=== PATIENT | female | born 1950 | race Caucasian/White ===

== ENCOUNTER → 2017-05-03 10:01 | Outpatient (CLI) | payer BC, SELFPAY ==
--- NOTE | 2017-05-03 10:03 | ECHOD_ITS ---
Reason For Study: RBBB Procedure This was a 2D Doppler, Color Flow transthoracic echocardiogram. Exam performed in department. Left Ventricle Normal LV size. Left ventricular systolic function is normal. The estimated ejection fraction is 60 %. No regional wall motion abnormalities noted. Right Ventricle Normal RV size. Normal systolic function. Atria Normal left atrium. Normal right atrium. Mitral Valve Normal mitral valve. Tricuspid Valve Normal tricuspid valve. Mild tricuspid valve insufficiency. Aortic Valve Trisinus/trileaflet aortic valve. Mild focal aortic valve calcification. Pulmonic Valve Normal pulmonic valve. Great Vessels Normal aortic root. The pulmonary artery is normal size. Normal inferior vena cava. Pericardium/Pleural No pericardial effusion. MMode/2D Measurements & Calculations LVIDd: 3.7 cm IVSd: 0.97 cm Ao root diam: 3.0 cm LVIDs: 2.6 cm LVPWd: 0.88 cm LA dimension: 3.9 cm RVDd: 3.2 cm FS: 30.2 % LAV(MOD-bp): 38.5 ml LA A4 area: 16.0 cm2 RA A4 area: 12.1 cm2 LAV(MOD-bp) Indexed: 20.6 ml/m2 LAV(MOD-sp2): 43.4 ml LAV(MOD-sp4): 34.2 ml Doppler Measurements & Calculations MV E max bhanu: 79.4 cm/sec Lat Peak E' Bhanu: 8.9 cm/sec Med Peak E' Bhanu: 4.9 cm/sec MV A max bhanu: 104.7 cm/sec E/E' lat: 8.9 E/E' med: 16.2 MV E/A: 0.76 Ao V2 max: 167.5 cm/sec LV V1 max: 127.8 cm/sec PA V2 max: 89.4 cm/sec Ao max P.2 mmHg LV V1 max P.5 mmHg Ao V2 mean: 130.3 cm/sec Ao mean P.2 mmHg Ao V2 VTI: 43.3 cm TR max bhanu: 224.6 cm/sec TR max P.2 mmHg Interpretation Summary Normal LV size. Left ventricular systolic function is normal. The estimated ejection fraction is 60 %. Mild tricuspid valve insufficiency. Ordering Physician: DELANO Zhou Referring Physician: Lizz Torres Performed By: Naty Mancini, JUAN, RVT
== END ==
PROVIDERS: Family Provider Nurse Practitioner; PCP Nurse Practitioner; Visit Provider Nurse Practitioner Gerontology
DX: I45.10 Unspecified right bundle-branch block (principal)
CPT/HCPCS: 93306

== ENCOUNTER → 2017-05-17 11:49 | Outpatient (CLI) | payer BC, SELFPAY ==
--- NOTE | 2017-05-17 11:51 | RAD_ITS ---
STUDY: X-RAY CHEST REASON FOR EXAM: Female, 66 years old. Cough TECHNIQUE: PA and lateral views of the chest. COMPARISON: 04/15/2017 FINDINGS: Stable hyperinflation of the upper lung parenchyma, few linear markings in the left base without significant change. There is no focal parenchymal abnormality. There is no demonstrated pneumothorax. There is no demonstrated pleural abnormality. Normal size heart. There are calcified mediastinal lymph nodes. Normal visualized pulmonary arteries. There is atherosclerotic calcification of the aortic arch with tortuosity. There are diffuse degenerative changes of the visualized thoracic spine. Normal visualized ribs, clavicles, and shoulders. There is no demonstrated abnormality of the visualized soft tissue structures of the upper abdomen. RAD/Chest PA and Lateral IMPRESSION: Hyperinflation likely postobstructive in nature with minor scarring/atelectasis, remote granulomatous exposure. No pulmonary edema, congestive heart failure or confluent pneumonia. There is no significant interval change. Electronically Signed: Lily Hudson MD at 11:31 EST , Service support ,
== END ==
PROVIDERS: Family Provider Nurse Practitioner; PCP Nurse Practitioner; Visit Provider Nurse Practitioner
DX: R05 Cough (principal)
CPT/HCPCS: 71046

== ENCOUNTER → 2017-06-13 15:25 | Outpatient (CLI) | payer BC, SELFPAY ==
--- NOTE | 2017-06-13 15:32 | VDLE_ITS ---
Reason For Study: edema RIGHT LEFT GSV is normal. CFV is compressible, spontaneous, phasic, CFV is compressible, spontaneous, phasic, competent, and demonstrates normal competent and demonstrates normal augmentation. augmentation. FV is compressible, spontaneous, phasic, competent and demonstrates normal augmentation. POP V is compressible, spontaneous, phasic, competent and demonstrates normal augmentation. T/P Trunk is compressible. PTV is compressible. RT PerV is compressible. Hypoechoic area behind the knee measuring 4.15 x 1.46 cm. Area is nonvascular. Procedure Exam performed in department. The exam was diagnostic. A preliminary report was called and/or faxed to the [facility]. Interpretation Summary Deep veins of the right lower extremity are patent and compressible segmentally. There is no evidence of right lower extremity deep vein thrombosis. Valvular competence appears intact within the proximal deep venous system on the right . The right greater saphenous vein appears patent and compressible segmentally. A non-vascular, hypoechoic structure is noted in the right popliteal space, measuring 4.15 cm x 1.46 cm. This probably represents a popliteal cyst. Clinical correlation is advised. Ordering Physician: Ganesh Obando Performed By: Amrit Cortés RVT
== END ==
PROVIDERS: Family Provider Nurse Practitioner; PCP Nurse Practitioner; Visit Provider Orthopaedic Surgery
DX: R60.0 Localized edema (principal); Z96.651 Presence of right artificial knee joint
CPT/HCPCS: 93971

== ENCOUNTER 2017-09-13 08:30 | Outpatient (RCR) | payer MEDICARE, SELFPAY ==
--- NOTE | 2017-08-06 08:52 | HP.PTEVAL ---
Patient's Visit Information LUIS MANUEL GUERRA is a 67 year old F referred to Physical Therapy by Ganesh Clement with a diagnosis of Right TKR. Date of Evaluation: 08/06/17 Physical Therapist: Pavithra Azar - Visit Plan Frequency: 2-3x /Week Duration: 3 Weeks Plan: Focus on LE ROM and functional mobility - Subjective Subjective: Right TKR 05/30/17- Dr. Mcgee. Went home after surgery- no problems- hardly used a walker- had home health. Home Health Finished up July 29 and sent her here. Patient feels the knee is stiff as a board- all the time. Measurments: most was 112 but last day was 105. Feels like the knee is regressing a little bit. This is her first total. Pain is usually not bad but walked on gravel yesterday so its sore today. No real pain just mostly stiffness. Sometimes does have radiating pain to the ankle- has had doplars which were negative. Soreness is on the medial and lateral joint line. Worst: 3/10 Best: 0/10. Sleep: not disturbed-doesn't have a favorite position. Fully I before surgery. Work: [employer]- does a lot of standing- worked a little bit Saturday but not back to [employer] yet-officially retired so she is not sure she will go back. PMHx: HTN Meds: exforge, Vimimo. Member of [employer]- - Objective Posture: FH, RS, Increased kyphosis. Gait: slightly antalgic- decreased heel/toe pattern. Stairs: asc/desc 8 recip with 1 HR- poor pattern. HR/TR: able- increased pain with TR. SLS: 5 sec then requires UE A. Palpation: tender along medial and lateral joint line. Observation: incision healed well- no s/s of infection. ROM: 10-95 degrees with pain at end range. Strength: Ankle: 5/5 Knee: 4+/5 Hip: 4/5 throughout Core: fair plus - Goals Goal 1:: Patient will be I with HEP and progression Goal Time Frame: 4-6 Weeks Goal 2:: Patient will demo 0-115 degrees of ROM in the right knee Goal Time Frame: 4-6 Weeks Goal 3:: Patient will ambulate >300 feet with a normalized gait pattern Goal Time Frame: 4-6 Weeks Goal 4:: Patient will asc/desc 8'' stairs recip with 1 HR and good control Goal Time Frame: 4-6 Weeks - Rehabilitation Potential Physical Therapy Diagnosis: Patient presents with hypomobility- she has decreased ROM, strength and muscular endurance leading to abnormal gait and increased difficulty with ADL's. Rehabilitation Potential: Fair - Anticipated Interventions Patient/Client Instruction: Educate patient on: Benefits of Fitness Program For the Purpose of:: To increase tolerance to activity/condition/position Therapeutic Exercise to Include: Strength training, Endurance training, Balance training, Body mechanics, Postural training, Flexibilty training, Gait and locomotor training, Passive ROM, Active ROM, Dynamic Lumbar Stabilization For the Purpose of:: To improve muscle performance and motor function TENS: Yes Cryotherapy (ice pack, ice massage): Yes Thermo therapy (hot pack): Yes Ultrasound (thermal/non thermal): No For the Purpose of:: To decrease pain Thank you for the opportunity to evaluate your patient. For Medicare and Medicare HMO plans, please review the plan of care and approve it. It will need to be FAXED BACK to us at [phone] for Medicare purposes. Please let me know if there are questions or concerns regarding this plan of care. Physician Signature: Date:
--- NOTE | 2017-08-29 09:28 | HP.PTREVAL_ITS ---
Ganesh Clement, It has been my pleasure to treat LUIS MANUEL GUERRA over the last 10 visits for Right TKR. Please see the progress note below for an update on the physical therapy plan of care! Subjective: Patient reports that she is happy with her progress. She feels that she is 80-90% better. She is back to all of her normal activities but she is still stiff. Goes back to [place] next week- she is still thinking about going back to work. Objective/Function: Posture: FH, RS, Increased kyphosis. Gait:improving-mildly antalgic Stairs: asc/desc 8 recip with 1 HR. HR/TR: able. SLS: 20 sec then requires UE A. Palpation: tender along medial and lateral joint line. Observation: incision healed well- no s/s of infection. ROM: 0-110 degrees with stiffness at end range. Strength: Ankle: 5/5 Knee: 4+/5 Hip: 4+/5 throughout Core: fair plus Plan Plan: Continue 2-3x a week for 2 weeks. Goals Goal 1:: Patient will be I with HEP and progression Goal Time Frame: 4-6 Weeks Goal Progress: Progressing Goal 2:: Patient will demo 0-115 degrees of ROM in the right knee Goal Time Frame: 4-6 Weeks Goal Progress: Progressing Goal 3:: Patient will ambulate >300 feet with a normalized gait pattern Goal Time Frame: 4-6 Weeks Goal Progress: Progressing Goal 4:: Patient will asc/desc 8'' stairs recip with 1 HR and good control Goal Time Frame: 4-6 Weeks Goal Progress: Progressing Anticipated Interventions Patient/Client Instruction: Educate patient on: Benefits of Fitness Program For the Purpose of:: To increase tolerance to activity/condition/position Therapeutic Exercise to Include: Strength training, Endurance training, Balance training, Body mechanics, Postural training, Flexibilty training, Gait and locomotor training, Passive ROM, Active ROM, Dynamic Lumbar Stabilization For the Purpose of:: To improve muscle performance and motor function TENS: Yes Cryotherapy (ice pack, ice massage): Yes Thermo therapy (hot pack): Yes Ultrasound (thermal/non thermal): No For the Purpose of:: To decrease pain Please do not hesitate to contact me at [phone] by phone or Fax: if you have questions or concerns regarding this new plan of care! Sincerely, Pavithra Azar
--- NOTE | 2017-12-24 10:50 | HP.PT.NRP ---
HP - Discharge Summary (1) - Patient Information LUIS MANUEL GUERRA was seen in my office for initial evaluation on 08/06/17. The following Plan of Care was established for this patient: Initial Frequency: 2-3x /Week Initial Duration: 3 Weeks - Anticipated Interventions Patient/Client Instruction: Educate patient on: Benefits of Fitness Program For the Purpose of:: To increase tolerance to activity/condition/position Therapeutic Exercise to Include: Strength training, Endurance training, Balance training, Body mechanics, Postural training, Flexibilty training, Gait and locomotor training, Passive ROM, Active ROM, Dynamic Lumbar Stabilization For the Purpose of:: To improve muscle performance and motor function TENS: Yes Cryotherapy (ice pack, ice massage): Yes Thermo therapy (hot pack): Yes Ultrasound (thermal/non thermal): No For the Purpose of:: To decrease pain This patient was last seen in our office . Pertinent comments regarding their Physical therapy will appear below: Patient has not attended physical therapy in over 8 weeks. At this time patient is appropriate for d/c and return to [place] as needed. At this point I will be discontinuing this patient from physical therapy. I would be happy to see this patient again in the future if found appropriate by the physician. Thank you! Pavithra Azar
== END 2017-09-13 19:00 | disposition home or self-care (01) ==
LOC: PT 08:30
PROVIDERS: Family Provider Nurse Practitioner; PCP Nurse Practitioner; Visit Provider Orthopaedic Surgery
DX: Z96.652 Presence of left artificial knee joint (principal)
CPT/HCPCS: 97110; 97161; 97164; 97530

== ENCOUNTER 2018-09-12 11:00 | Outpatient (RCR) | payer MEDICARE, SELFPAY ==
--- NOTE | 2018-09-04 14:00 | HP.PTEVAL ---
Patient's Visit Information LUIS MANUEL GUERRA is a 68 year old F referred to Physical Therapy by Lizz Torres NP with a diagnosis of LOW BACK PAIN. Date of Evaluation: 09/04/18 Physical Therapist: Sylvia Morris PT, Cert MDT - Visit Plan Frequency: 2-3x /Week Duration: 4-6 Weeks Plan: US, POSTURE CORRECTION/STRENGTHENING, INSTRUCTION IN APPROPRIATE BODY MECHANICS AND ACTIVITY MODIFICATIONS. DLS STARTING WITH A NEUTRAL SPINE PROGRESSING ROM TOLERATED. FERNIE LE ROM, STRETCHING AND STRENGTHENING. HEP INSTRUCTION. - Subjective Findings: Work/Leisure: HAS 3 JOBS. 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 RECENTLY WORKED IN [employer] ABOUT 15 HRS A WEEK. 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 Disability: NO. Present symptoms: LOW BACK PAIN, RIGHT SCIATIC INTO BUTTOCK. DENIES FERNIE LE NUMBNESS AND TINLGIN. Present since: NIGHT - 10 DAYS AGO. Pain Scale: WORST 7/10, LEAST 2/10. Currently: 5/10. Commenced as a result of: NO APPARENT REASON BUT DID RIDE ON A TRACTOR STANDING IN [place] THAT DAY. Symptoms at onset: RIGHT LOW BACK. Worse: LYING DOWN, SOMETIMES SITTING, SOMTIMES DRIVING, GOING UP AND DOWN STEPS, SOMETIMES LIFTING. Better: MUSCLE RELAXERS, SOMETIMES ICE, CHANGE OF POSITION SOMETIMES. Disturbed sleep: YES. Previous history/Previous treatment: ONE OTHER EPISODE OF SCIATICA 3-4 YEARS AGO THAT GOT BETTER WITH DEEP TISSUE MASSAGE 3 TIMES. TRIED CHIROPRACTOR WITH SCIATICA EPISODE WITHOUT BENEFIT. NO BACK SURGERY. NO BACK INJECTIONS. Coughing/sneezing/straining: NEGATIVE. Gait: NORMAL EXCEPT FOR LEFT KNEE AT THIS POINT. Difficulty initiating urinatin: NO. Accidents: NO. Unexplained weight loss: NO. Imaging: NO RECENT OR REMOTE IMAGING THAT PATIENT IS AWARE OF. PMH: HTN, HIGH CHOLESTEROL. Recent major surgery: RIGHT TKR MAY 2017. LEFT TKR RECOMMENDED. PLOF (Prior Level of Function): UNLIMITED. OTHER: PATIENT REPORTS SHE HAS A UTI AND IS ON ANTIBIOTIC. - Objective Sitting/Standing Posture: POOR. Lordosis: REDUCED. Lateral shift: NO. Relevant shift: N/A. Active Correction of posture: BETTER. Other Observations: INDEP GAIT INTO PT WITH MILD LIMP ON LLE AND KNEE APPEARED TO BUCKLE ONE TIME WHICH PATIENT STATES IS NOT OUT OF THE ORDINARY FOR HER. Motor deficit: 5/5 FERNIE LE'S WITH MMT'ING IN SITTING EXCEPT HIPS 4/5. RIGHT HIP TESTING DOES NOT PROVOKE INCREASED PAIN. Sensory deficit: NO. ROM deficit: LEFT KNEE ROM 0 DEG EXT TO 111 DEG FLEX. RIGHT KNEE 0 DEG TO 108 DEG FLEX. Reflexes: UNABLE TO ELICIT FERNIE LE DTR'S. Dural Signs: NEGATIVE FERNIE LE'S. Lumbar mvmt loss: flex - NIL. ext - MOD - INCREASES RIGHT BUTTOCK, HIP AND PROXIMAL THIGH PAIN. R SG - MOD - NE. L SG - MOD TO OLE - PRODUCES RIGHT LOW BACK PAIN. Core strength: POOR. Palpation: RIGHT BUTTOCK TENDERNESS BUT NO ACUTE THORACIC, LUMBAR OR SACRAL, HIP TENDERNESS OTHERWISE. - Goals Goal 1:: DECREASE C/O RIGHT BACK AND LE PAIN. Goal Time Frame: 4-6 Weeks Goal 2:: IMPROVE PERSONAL CARE, LIFTING, WALKING, SITTING, SLEEP, TRAVEL AND HOMEMAKING FUNCTION Goal Time Frame: 4-6 Weeks Goal 3:: INSTRUCT IN PROPHYLAXIS Goal Time Frame: 4-6 Weeks - Rehabilitation Potential Rehabilitation Potential: Fair - Anticipated Interventions Patient/Client Instruction: Educate patient on: Condition, Plan of Care, Risk Factors, Benefits of Fitness Program For the Purpose of:: To improve self management Therapeutic Exercise to Include: Strength training, Body mechanics, Postural training, Flexibilty training, Dynamic Lumbar Stabilization For the Purpose of:: To decrease pain, To increase ROM, To improve muscle performance and motor function, To increase tolerance to activity/condition/position, To improve ability of physical actions for home/community/work/leisure Cryotherapy (ice pack, ice massage): Yes Thermo therapy (hot pack): Yes Ultrasound (thermal/non thermal): Yes For the Purpose of:: To decrease pain, To decrease swelling/inflammation, To improve nutrient delivery to tissue Thank you for the opportunity to evaluate your patient. For Medicare and Medicare HMO plans, please review the plan of care and approve it. It will need to be FAXED BACK to us at [phone] for Medicare purposes. For Medicare only, by signing this I certify the plan of care. Please let me know if there are questions or concerns regarding this plan of care. Physician Signature: Date:
--- NOTE | 2018-12-02 14:51 | HP.PT.NRP ---
HP - Discharge Summary (1) - Patient Information LUIS MANUEL GUERAR was seen in my office for initial evaluation on 09/04/18. The following Plan of Care was established for this patient: Initial Frequency: 2-3x /Week Initial Duration: 4-6 Weeks - Anticipated Interventions Patient/Client Instruction: Educate patient on: Condition, Plan of Care, Risk Factors, Benefits of Fitness Program For the Purpose of:: To improve self management Therapeutic Exercise to Include: Strength training, Body mechanics, Postural training, Flexibilty training, Dynamic Lumbar Stabilization For the Purpose of:: To decrease pain, To increase ROM, To improve muscle performance and motor function, To increase tolerance to activity/condition/position, To improve ability of physical actions for home/community/work/leisure Cryotherapy (ice pack, ice massage): Yes Thermo therapy (hot pack): Yes Ultrasound (thermal/non thermal): Yes For the Purpose of:: To decrease pain, To decrease swelling/inflammation, To improve nutrient delivery to tissue This patient was last seen in our office 09/12/18. Pertinent comments regarding their Physical therapy will appear below: This patient has not returned to Physical Therapy and is appropriate to return to [place] for further follow-up as needed. At this point I will be discontinuing this patient from physical therapy. I would be happy to see this patient again in the future if found appropriate by the physician. Thank you! Sylvia Morris, PT, Cert MDT
== END 2018-09-12 19:00 | disposition home or self-care (01) ==
LOC: PT 11:00
PROVIDERS: Family Provider Nurse Practitioner; PCP Nurse Practitioner; Referring Provider Nurse Practitioner; Visit Provider Nurse Practitioner
DX: M54.5 Low back pain (principal)
CPT/HCPCS: 97035; 97110; 97161; 97530

== ENCOUNTER → 2020-08-11 15:34 | Outpatient (CLI) | payer MEDICARE, SELFPAY ==
--- NOTE | 2020-08-11 15:37 | CT_ITS ---
STUDY: CT LEFT LOWER EXTREMITY REASON FOR EXAM: Varus deformity, surgical planning. TECHNIQUE: Transaxial CT imaging of the lower extremity was performed. Coronal and sagittal images were reformatted. Individualized dose optimization techniques were used for this CT. COMPARISON: None. FINDINGS: Knee: There are marginal osteophytes and moderate joint space narrowing of the medial femorotibial compartment (coronal reconstruction 42). There are marginal osteophytes without joint space narrowing of the lateral femorotibial compartment. There are marginal osteophytes and severe joint space loss of the patellofemoral compartment (sagittal reconstruction 34). Normal proximal tibiofibular articulation. There is no joint effusion. The quadriceps tendon is grossly normal. There is an enthesophyte at the superior pole of the patella. The patellar tendon is grossly normal. Normal Hoffa''s fat pad. There are intra-articular bodies in the distal popliteus tendon sheath (sagittal reconstructions 30-34). There is a popliteal cyst (sagittal reconstruction 46). There is incidental vacuum phenomenon in the medial and lateral femorotibial compartments (coronal reconstructions 41, 42, 45). There is a soft tissue calcification in the anterior subcutis adipose space (sagittal reconstruction 46). There is vascular calcification. Hip: Unremarkable left hip joint. Ankle: Normal left tibiotalar, posterior subtalar and talonavicular articulations. There is a plantar calcaneal enthesophyte. CT/Extremity Lower without Contra IMPRESSION: Osteoarthritis of the left knee with intra-articular bodies. Electronically Signed: Isidro Valdes MD at 9:11 EDT Tel , Service support ,
== END ==
PROVIDERS: PCP Nurse Practitioner; Referring Provider Specialist; Visit Provider Specialist
DX: M21.162 Varus deformity, not elsewhere classified, left knee (principal); M17.12 Unilateral primary osteoarthritis, left knee
CPT/HCPCS: 73700

== ENCOUNTER 2020-08-31 12:25 | Observation (INO) | payer MEDICARE, SELFPAY ==
--- NOTE | 2020-08-12 12:43 | HP.PCM_ITS ---
History and Physical History and Physical [facility] Patient Name: Deborah Diaz : 1950 From:? COREEN GILBERT PA-C? DATE OF SURGERY:? 08/31/2020 SCHEDULED PROCEDURE:? left total knee arthroplasty HISTORY OF PRESENT ILLNESS: This is a 70-year-old female who has had ongoing pain in her left knee for the past 3 years.? She does have a previous torn meniscus several years ago that she did have arthroscopic surgery in [address] Adrian Daigle.? Her pain has been aching, sharp, stabbing, sore.? Pain is increased with going up and down stairs, sitting.? Her pain can reach 8/10 with activities.? She has increased pain with any twisting type activities.? There is intermittent swelling.? Pain is in the posterior aspect of the knee and medial aspect.? Pain does awaken her at night.? Patient states her activities of daily living have been affected and she has a hard time with bathing/showering.? She feels unsafe going up and down stairs.? She has attempted conservative measures including rest, ice, heat, elevation with no relief in symptoms.? She has also been through formal physical therapy, home exercises, home care coordinator without relief in symptoms.? Patient has been using oral nonsteroidal anti-inflammatories and is currently on meloxicam.? Patient does have previous right total knee arthroplasty in 2018 at the [facility].? She has medical history pertinent for hypertension.? After failing conservative measures and discussing treatment options with Dr. José Miguel Cano, the patient does wish to proceed with a left total knee arthroplasty.? We are obtaining surgical clearance by the primary care provider ANI Brian.? Patient does report being currently treated for a UTI in which she is currently on antibiotic.? She has a follow-up with the primary care provider on August 18, 2020.? She denies any fevers, chills at home.? No chest pain or shortness of breath. REVIEW OF SYSTEMS: ROS: Const: Denies anorexia, change in appetite, fever, hard of hearing, vision problems and weight change. CV: Denies chest pain, heart murmur, irregular heartbeat and peripheral vascular disease. Resp: Denies asthma, cough, pneumonia, sleep apnea, SOB, tuberculosis and wheezing. GI: Denies constipation, diarrhea, difficulty swallowing, heartburn, nausea, bloody stools and vomiting. : Urinary: denies incontinence. Musculo: Denies leg swelling, limp, trouble walking and weakness. Skin: Denies Raynaud's, history of shingles and tattoo. Neuro: Denies ambulatory dysfunction, dizziness, numbness/tingling and tremor. Psych: Denies anxiety, depression, insomnia, mental illness and stress. Arvind/Lymph: Denies anemia, bleeding/bruising tendency and past transfusion. Reviewed, no changes. PAST MEDICAL HISTORY: Advance Care Plan: Other Directive, living will Effective Date: 08/11/2020 PMH: Medical Problems: High Blood Pressure, Kidney Stones Accidents: Fracture - (?) ARM FX - 18 MO. OLD AFTER FALLING OUT OF BED Surgical Hx: Hysterectomy - (1992) [facility] Kidney Stones - (1995) [facility] Tonsillectomy - (1954) [facility] Knee Arthroscopy RT - (2004) [facility] - DR. DAIGLE Knee Arthroscopy LT - (2005) [facility] - DR. DAIGLE RT Trigger Finger Release - (02/28/2011) [email or web address] Knee Replacement RT - (2017) [facility] Anesthesia Complications: None Assistive Devices: Glasses - READING ONLY Reviewed, no changes. SOCIAL HISTORY: SH: Marital: .Occupation: [employer].Work Status: Currently Working.Hand Dominance: Right-handed. Personal Habits:? Cigarette Use: Never.Alcohol: Denies use.Drug Use: Denies Use.Enjoy Exercising: Exercises 1-3 x/month. Reviewed, no changes. VITALS: Ht: 63 Wt: 186lb Wt k.370 BMI: 32.9 BP: 117/60 Pulse: 70 Resp: 20 T: 97.7 T: 36.5C Pain Level: 8 ALLERGIES: No Known Drug Allergy? MEDICATIONS: Meloxicam 7.5 mg take 1 tablet by mouth twice A day, Famotidine 20 mg prn, Levothyroxine Sodium 150 mcg 1 tab PO daily, Amlodipine Besylate-Valsartan 10- 320 mg 1 tab PO daily, Fenofibrate 145 mg 1 tab PO daily PRE-OP EXAM:? General appearance:NORMAL? ? ? Other: Eyes: Conjunctivae and lids: NORMAL? Pupils: ERR Ears, Nose, Mouth, and Throat: NORMAL? Other: Inspection of lips, teeth and gums: NORMAL? ?Other: Neck: Examination of neck: no masses noted. Respiratory: Assessment of respiratory effort: NORMAL? ?Other: ?Auscultation of lungs: clear to auscultation no wheezes, rhonchi or rales. Cardiovascular:? Auscultation of heart: regular rate and rhythm, no murmurs, gallops or rubs. Exam of carotid arteries: NORMAL? ?Other: Gastrointestinal:? Exam of abdomen: soft, nontender, nondistended bowel sounds present. PHYSICAL EXAMINATION: Patient walks with an antalgic gait.? Left knee is cool to touch without erythema or signs of infection.? She does have tenderness to palpation along the medial joint line.? There is varus alignment which is partially correctable.? Range of motion: He lacks 5 of full extension to 116 flexion.? Moderate effusion.? Sensation intact to light touch.?? IMAGING STUDIES: Previous x-rays of the left knee reveal varus alignment with medial joint space narrowing, subchondral sclerosis, osteophyte formation consistent with for osteoarthritis IMPRESSION: 1.? Severe left knee osteoarthritis 2.? Hypertension 3.? History of kidney stones PLAN: Dr. José Miguel Cano did discuss and review with the patient all treatment options including surgical versus nonsurgical options.? Patient does wish to proceed with the above-stated procedure.? Potential risks, benefits, and complications of the procedure were discussed in detail including but not limited to , infection, nerve and blood vessel damage, persistent pain, numbness, tingling, paresthesias, blood clot, pulmonary embolism, and requirement for possible further surgery.? The patient expressed full understanding and has no further questions for the doctor.? Patient does agree to proceed with the above-stated procedure and has signed the surgery consent form. We discussed the current risks associated with COVID 19.? This does include the risk of exposure while in the hospital.? Patient was reassured local hospitals have low infection rates and are taking all necessary precautions to avoid exposure to patients.? In addition, we discussed strategies that can be used to help limit exposure including those that limit the patient's time in the hospital.? Also using strategies to limit the patient's need for continued inpatient services after being discharged from the hospital.? Patient was notified that we will need to comply with any screening or testing the hospital wishes to perform or that surgery may be delayed for any positive results. This dictation was created using voice recognition software. Phonetic and/or grammatical errors may exist. ___? I have re-examined the patient.? There are no clinical changes since date of exam. ___? See progress notes for changes. ___? Dictated on admission Date: ? ? ?Time: Signature:
[2020-08-18 16:12] LABS: Magnesium 1.9 mg/dL (1.6-2.6)
[2020-08-31] VITALS (16 sets, daily range): BP systolic 110–136; BP diastolic 53–86; PULSE 62–81; RESP 16–18; TEMP 36.1–36.5; O2SAT 90–100; BMI 32.3
--- NOTE | 2020-08-31 12:25 | RAD_ITS ---
STUDY: X-RAY - LEFT KNEE REASON FOR EXAM: Female, 70 years old. post op -- AP and Lateral xray of operative knee in PACU TECHNIQUE: 2 view(s) of the knee. COMPARISON: None. FINDINGS: Newly placed tricompartmental hardware is present demonstrating good bony contact and alignment. The tibial stem is noncemented. Tract orellana are seen in the undersurface of the patella due to placement of a radiolucent prosthetic component. There are expected postoperative changes in the soft tissues and joint including gas, fluid, and swelling. Multiple overlying skin flory are present. Atherosclerotic calcifications are present. Osteotomy defects are seen in the distal one third femoral shaft. RAD/Knee 1 or 2 Views IMPRESSION: Status post left knee arthroplasty Electronically Signed: Fabien Hernández MD at 18:06 EDT , Service support ,
--- NOTE | 2020-08-31 12:28 | PCM.OPRPT ---
Report of Operation Date of Procedure: 08/31/20 Pre-Operative Diagnosis: Left knee primary osteoarthritis Post-Operative Diagnosis: Left knee primary osteoarthritis Surgery/Procedure Performed:: Left knee minimally invasive robotic assisted total knee replacement Description of Surgical Findings:: Stable knee with good patella tracking Surgeon: José Miguel Cano local company flatbed truck driver: Te Bustamante Type of Anesthesia: Spinal Anesthesiologist: Evelio Schneider Special Medications: 2 g Ancef, 1 g TXA at incision, 1 g TXA closure, 10 mg Decadron, joint cocktail (5 mg Duramorph, 30 mL of 0.5% Ropivicaine, 1000 units of epinephrine, 30 mg of Toradol) Specimen's removed: Bony cuts Estimated Blood Loss (mL): 50 Fluids Replaced: 1000 mL crystalloid Description of Procedure: Implants used: 1. Андрей size 3 triathlon cruciate retaining distal femoral press-fit component 2. Suring size 3 press-fit tritanium tibial baseplate 3. Андрей X3 9 mm CS polyethylene 4. Андрей X3 29 mm asymmetric patella Brief history operative indications: 70-year-old female with history of left knee osteoarthritis with radiographic findings with loss of joint space, osteophyte formation and subchondral sclerosis. Failed conservative measures as mentioned in the H&P. Discussion of total knee arthroplasty as well as risk and benefits were discussed the patient including but not limited to blood loss, DVTs, PEs, neurovascular damage, general risk of anesthesia including loss of life, and stiffness or instability were discussed with patient. Patient demonstrated understanding and was able to sign informed consent. Procedure: On the date of procedure patient's left lower extremity was marked in the preoperative area. The patient was then taken back to the operating room where the patient was placed on the table in the supine position. All bony prominences were identified a well-padded. Anesthesia assumed control of the C-spine and airway and remained controlled throughout the remainder of the procedure. A tourniquet was placed on the left upper thigh and the leg was prepped in a sterile fashion. The surgeon then scrubbed at this time .Upon reentering the room left lower extremity was draped in a standard orthopedic fashion. A timeout was then called and everyone agreed upon the side, the site, the procedure to be performed, patient's identity and antibiotics given. Esmarch bandage was used to exsanguinate the extremity and the tourniquet was placed up to 250 mmHg with the knee in flexion. A midline skin incision was made and sharp dissection was taken down through skin subcutaneous tissue and fat. The standard medial parapatellar incision was made and the patella was subluxed laterally. An Appropriate deep MCL release was done and the fat pad was resected. Our attention was then directed to the patella. The patella was everted and a flat resection was made. The knee was then flexed up in 2 femoral pins were placed inside the incision and 2 tibial pins were placed outside the incision in the medial tibia bicortically. Once this was completed the 2 checkpoints in the femur and tibia were placed. Knee was then flexed up and the bony landmarks were registered. Once this was completed knee was taken through range of motion and manually stressed allowing us to a plan for an appropriate tibial cut. The robotic arm was brought into the field sterilely and checkpoint and saw were registered. Based on the patient's deformity the tibial cut was made 2 degrees varus. At this time the tensioner was then placed in the joint and ligament tension was checked at 90 degrees and full extension. Based on the patient's ligamentous tension appropriate adjustments were made to the operative plan and ligament releases were done. Once we were happy with our operative plan with balanced flexion and extension gaps our attention was directed to the femur. The robot was brought into the field sterilely and registered. Posterior condylar cuts, anterior chamfer cuts and anterior cuts were appropriately made for a size 3 femur. When these were completed the saws were switched out in the distal femoral and posterior chamfer cuts were made. Protecting the soft tissue throughout this time. A size 3 tibial base plate was selected. the knee was flexed to 90 degrees and the soft tissues and posterior osteophytes were removed from the joint. 40 cc of the periarticular injection was injected into the posterior medial corner of the joint. The appropriate trials were then placed on the femur and tibia. A trial polyethylene was trialed to ensure proper balancing and stability of the knee. The appropriate tibial internal rotation was then marked with a bovie. Our attention was then directed to the patella. The lug holes were drilled and the patella trial was placed. Patellar tracking was checked and deemed appropriate. Once we were happy lug holes were drilled for the femur and trial components were removed. the tibia was subluxed and pinned into place and the keel was punched and drilled appropriately. Final components were verified and opened, and cement was mixed in a vacuum. Enlighted Simplex cement was used. The wound was copiously irrigated with normal saline. When the cement was ready the components were impacted into place starting with the tibia, femur and finally cementing the patella. The trial poly component was placed and the knee was placed in full extension. All excess cement was removed in the process. Once the cement had cured the tracking, alignment and balance were verified and a size 9 mm CS polyethylene component was placed. Once the final components were placed a 3-minute dilute Betadine lavage was performed followed by an Irrisept lavage was performed and the wound was copiously irrigated with normal saline solution and the periarticular injection was given. The wound was closed in a layer donato fashion using #1 vicryl interrupted sutures for the arthrotomy, 2-0 interrupted Vicryl suture for the subcuticular layer and flory for final skin closure. A sterile compressive dressing was then placed. The patient was then awakened from anesthesia, transferred to the rcal nev ari and transferred to the PACU for recovery. Post op plan DVT ppx: ASA 81mg BID, thigh high compression stockings Follow up: in office in 2 weeks for wound check PT: to start POD #0 at hospital, outpatient PT should be arranged. My physician events assistant was a vital part of this case. He was important in appropriate retraction during the case, and protection of soft tissues during bony cuts. His intimate knowledge of the case and my steps aided in safe and expedient completion of the procedure as well as appropriate position of the leg during the case. He was also vital in assisting with closure under my direct supervision. Due to the complexity of this case robotic arm was used to assist in the surgery to improve accuracy and clinical outcomes. Complications No intraoperative complications Admit VTE Documentation VTE Present on Admission: No VTE Mechan Device Prophylaxis: SCD's and Thigh High KRISTYN Hose VTE Pharm Prophylaxis ordered?: Yes
[2020-08-31 12:31] LABS: Bedside Glucose 93 mg/dL (70-110)
[2020-08-31] MEDS: Acetaminophen 500 MG Tablet 1000 MG PO ×2 (12:42→21:20)
[2020-08-31] MEDS: Gabapentin 600 MG Tablet PO (12:42)
[2020-08-31] MEDS: Celecoxib 200 MG Capsule 400 MG PO (12:42)
[2020-08-31] MEDS: Lactated Ringers 1,000 ML 999 ML IV ×2 (12:43→16:05)
[2020-08-31] MEDS: Cefazolin 2 GM in 0.9% Normal Saline 100 ML IV (14:00)
--- NOTE | 2020-08-31 14:15 | KNEE_PTH ---
PATIENT: LUIS MANUEL GUERRA LOC: MS3 U#:[id number] AGE/SX: 70/F ROOM: [facility] RE08/31/[address]: Dr. José Miguel Cano MD : 1950 BED: 1 DIS: 09/01/2020 SPEC #: [id number] RECD: 09/01/20 07:38 STATUS: BIA BARRIOS #: [id number] JOSÉ: 08/31/20 14:[address]: José Miguel Cano DEPT: SURGICAL PATHOLOGY RECD BY: Katerina Byrd ENTERED: 09/01/20 11:27 SP TYPE: TOTAL KNEE OTHR DR: MD Lizz Dotson, WARRANTY COORDINATOR-C Tissues: Knee, NOS Procedures: Decalcification bone/plaque Surgery Specimen Level IV HEADER OPERATION: ERAS, total knee replacement robotic arm assist PRE-OP DIAGNOSIS: Left knee primary osteoarthritis TISSUE SUBMITTED: Left knee bone and tissue MICROSCOPIC DIAGNOSIS Bone and soft tissue, left knee, total knee replacement/resection: Pieces of bone with degenerative osteoarthritic changes. Fibroadipose tissue, fibroconnective tissue and reactive synovial tissue. TASHA:clifford 09/05/2020 MICROSCOPIC DESCRIPTION Slides are reviewed. GROSS DESCRIPTION Received is one container designated bone and soft tissue left knee. The specimen consists of multiple fragments of peck-yellow bone measuring in aggregate 10 x 9 x 3 cm. Soft tissue is noted attached to one of the pieces of bone and measures 4 x 1 x 0.7 cm. A number of bony fragments contain articular surfaces consistent with tibial plateau and femoral condyle and displaying prominent osteophyte formation, eburnation, and bone erosion. Hydraulic Modeling Engineer sections are submitted in two cassettes as follows: 1 - soft tissue, 2 - bone after decalcification. / TASHA:clifford 09/01/20 TC:5 CPT: 28437, 43116
[2020-08-31] MEDS: dexAMETHasone 10 MG/ML Vial IV (14:22)
[2020-08-31 16:40] LABS: Bedside Glucose 153 mg/dL (70-110)
[2020-08-31] MEDS: Lactated Ringers 1,000 ML 125 ML IV (17:06)
[2020-08-31] MEDS: oxyCODONE 5 MG Tablet PO (18:12)
--- NOTE | 2020-08-31 19:29 | PCM.PN.BLA ---
Documented by User: DELANO Page 08/31/20 19:39 Physical Exam Narrative Patient is a 70-year-old female who presents today for knee replacement left total. At the request of Dr. Cano we are consulting for medical management. Patient states that she is currently nauseous and is similar to when she had her right knee replaced. Otherwise patient denies symptoms. Patient has a medical history of hypertension, hypertriglyceridemia, and hypothyroidism as well as osteoarthritis. Const alert, oriented x3 and no apparent distress General Appearance: cooperative and comfortable HEENT normocephalic and head/scalp atraumatic Eyes PERRL Neck full ROM, no lymphadenopathy and supple Lymph Lymphatic: no lymphadenopathy noted Resp normal respiratory effort and normal air movement Cardio regular rate, regular rhythm, S1 normal heart sound and S2 normal heart sound GI normal to inspection, nondistended, normoactive bowel sounds, soft to palpation and non-tender no CVA tenderness Back/Spine normal ROM Extremity normal to inspection, normal capillary refill and no clubbing, cyanosis or edema Peripheral Pulses: Yes pulses 2+ throughout Right Lower Extremity: knee joint ROM (Limited postop day 0) Skin no rashes or lesions noted and skin turgor normal Wounds: wounds noted flory Wound Narrative: Postop dressing dry and intact Neuro oriented x3 and CN's II-XII intact bilaterally Psych mental status grossly normal, thought process normal, cooperative and affect normal Assessment & Plan Assessment/Plan (1) Hypertension: QUALIFIERS: Hypertension type: essential hypertension Qualified Code(s): I10 - Essential (primary) hypertension (2) Thyroid disease: (3) Total knee replacement status: QUALIFIERS: Laterality: right Qualified Code(s): Z96.651 - Presence of right artificial knee joint (4) Nausea and vomiting after administration of anesthetic agent: PLAN: 1. Nausea and vomiting after administration of anesthetic agent -Zofran 4 mg every 8 hour IV ordered 2. Hypertension -Vital signs per protocol, trend BP and heart rate -Continue amlodipine 10?valsartan 320 mg daily 3. Hypothyroidism -Continue levothyroxine 150 mcg daily 4. Hypertriglyceridemia -Continue fenofibrate 145 mg p.o. daily 5. Right total knee replacement -Postop day 0 -Continue pain management as ordered per orthopedic surgeon DVT prophylaxis-SCDs This patient was seen by DELANO Page under the supervision of Dr. Best. Documented by User: Dr. Coy Best DO 08/31/20 20:09 Addendum Addendum: Patient was seen in examined independently of Tristian Carter, she was seen for medical management following a left total knee replacement due to osteoarthritis. Patient's chronic medical problems include essential hypertension, hypertriglyceridemia, hypothyroidism, and osteoarthritis. At the time of my examination, patient is comfortable post surgery. She offers no complaints of any shortness of breath, chest pain, fever, or chills. On examination she appeared in good health and spirits, she does not appear to be in any distress. Vital signs as documented. Skin warm and dry and without overt rashes. Neck without JVD, thyroid appears normal, trachea is midline, neck is supple. Lungs clear, normal air movement was noted. Heart exam notable for regular rhythm, normal sounds and absence of murmurs, rubs or gallops. Abdomen unremarkable and without evidence of organomegaly, masses, or abdominal aortic enlargement, bowel sounds are present in all 4 quadrants, no abdominal tenderness was noted. Extremities-left knee was not examined, no cyanosis was noted, no clubbing was noted. Neuro: Cranial nerves II through XII are grossly intact, no focal motor deficits were noted, sensation to light touch and pinprick is intact, motor exam 5/5 throughout. Psych: Patient is alert and oriented x3, she does not appear anxious or depressed, she does not appear agitated. Patient appears medically stable at this time, she will receive her outpatient medications well hospitalized. I have reviewed Tristian Carter's progress note including her medical assessment and plan of care and endorse it. Visit Charges Inpatient E&M: 02680 Subs Hosp L2
[2020-08-31] MEDS: Ondansetron 4 MG/2 ML Vial IV (19:35)
[2020-08-31] MEDS: Senna/Docusate Sodium 1 Tablet 2 TABLET PO (21:21)
[2020-08-31] MEDS: Aspirin 81 MG TAB.CHEW PO (21:24)
[2020-08-31] MEDS: Cefazolin 1 GM/50 ML BAG IV (21:25)
[2020-08-31] MEDS: Ketorolac 15 MG/ML Vial IV (22:51)
[2020-08-31] MEDS: proMETHazine 25 MG/ML Syringe 12.5 MG IM (23:05)
[2020-09-01 02:47] VITALS: BP 105/55; PULSE 54; RESP 18; TEMP 36.4; O2SAT 98
[2020-09-01] MEDS: Cefazolin 1 GM/50 ML BAG IV (05:26)
[2020-09-01] MEDS: Acetaminophen 500 MG Tablet 1000 MG PO ×2 (05:28→14:04)
[2020-09-01] MEDS: Levothyroxine 150 MCG Tablet PO (05:28)
[2020-09-01] MEDS: 0.9% Saline Lock 10 ML Syringe IV (05:30)
[2020-09-01] MEDS: oxyCODONE 5 MG Tablet PO ×3 (05:52→11:23)
[2020-09-01 06:43] VITALS: BP 120/62; PULSE 62; RESP 18; TEMP 36.6; O2SAT 99
--- NOTE | 2020-09-01 07:00 | PN.ORTHO_ITS ---
Subjective Subjective The patient was sitting in bedside chair upon examination. Patient denies any chest pain, shortness of breath, dizziness, lightheadedness, nausea or vomiting, or calf pain. Pain is controlled on medications. Patient did have some nausea yesterday after surgery but this has resolved. There was also issue overnight with her O2 saturation dropped into the 60%. She was placed on 5 L of nasal O2. Patient reports having a work-up for sleep apnea but something happened to the machine and she never was able to finish the study. She uses nothing at home. She currently denies any chest pain or shortness of breath. Her pain is being controlled. Objective Data Objective Data Vital Signs: Vital Signs Temp Pulse Resp BP Pulse Ox 97.9 F 62 18 120/62 99 09/01/20 06:43 09/01/20 06:43 09/01/20 06:43 09/01/20 06:43 09/01/20 06:43 Oxygen Flow Rate (L/min) 2 Oxygen Delivery Method Nasal Cannula Weight: 82.8 kg Body Mass Index (BMI) 32.3 Intake & Output: Intake and Output for Last 24 Hours 08/30/20 08/31/20 09/01/20 23:59 23:59 23:59 Intake Total 2485 / 2745 1410 / 1410 Balance 2485 / 2745 1410 / 1410 Lab / Micro Data Labs: Laboratory Results - last 24 hr 08/31/20 08/31/20 12:13 16:12 POC Glucose 93 153 H Micro: Microbiology 08/18/20 15:11 Swab (Method) Nasal Screen MRSA/MSSA - Final Radiography Diagnostic Testing: Radiology Impression Knee X-Ray 08/31/20 12:25 IMPRESSION: Status post left knee arthroplasty Electronically Signed: Fabien Hernández MD at 18:06 EDT , Service support , Physical Exam Narrative Vital signs stable and afebrile. Patient is able to plantarflex and dorsiflex actively. Sensation is intact to light touch to saphenous, sural, superficial and deep peroneal, and tibial distribution. Dressing is clean dry and intact with only small drop of discharge. Mild discharge over the distal pin site. Negative Homans bilaterally, negative signs and symptoms of DVT. Const alert, oriented x3 and no apparent distress Assessment & Plan Assessment/Plan (1) Status post total left knee replacement: PLAN: 1. S/P left total knee arthroplasty POD #1 2. Continue Pain Medications: Tylenol, meloxicam, oxycodone 3. DVT Prophylaxis: Take 81 mg aspirin twice daily for 4 weeks postoperatively for DVT prophylaxis 4. PT/OT: Weightbearing as tolerated 5. H & H: They attempted to draw blood this morning but needed to come back as they could not get blood, asymptomatic. 6. Encouraged Incentive Spirometry 7. Suspected sleep apnea: Patient did drop O2 saturation overnight and required additional nasal oxygen. We will continue to monitor throughout the day. We discussed following up with her primary care physician with regards to this. She did voice understanding. 8. Continue postoperative medical management per medicine 9. Disposition: Possible discharge this afternoon/evening if patient is medically stable, pain is well controlled and tolerates physical therapy. Prescriptions will be E scribed to the [facility] in [facility]. She has outpatient physical therapy established. She will follow-up per postop instructions. I have reviewed the [place] Automated Rx Reporting System (OARRS) report for this patient for refill pattern and other prescriber involvement as part of the appropriate surveillance for the provision of acute and chronic controlled medications. The report was requested and reviewed on the date of this entry and was considered in the prescribing process.
--- NOTE | 2020-09-01 07:04 | PCM.DC ---
Discharge Instructions Diet Discharge Diet: No restrictions Activity Discharge Activity: May Not Drive and May not drive while taking narcotic pain medications. May shower in (days): 1 (Please turn dressing away from water. Okay to get wet as long as dressing is intact to skin.) Ice area for (Minutes): 20 (Every 1-2 hours while awake. Please place barrier between the skin and ice pack.) Weight Bearing Status: Weight bearing as tolerated Keep extremity elevated above heart level: Operative Extremity Dressing / Incision Call your doctor if your incision/area has: Continuous Slow Oozing, Sudden Increased Bleeding, Increased Pain/ Swelling, Increased Redness and Foul Smelling Discharge Call your doctor if you observe: Fever of 101 or Higher, Coldness, Increased Pain, Numbness or Tingling, Change in Color, Shortness of breath, Chest pain, Calf discomfort and Uncontrolled pain Remove Dressing in: 4 days (Okay to remove dressing on September 05, 2020) Additional Dressing/Incision Instructions:: Follow [facility] Post-op Instructions. Once postoperative dressing has been removed only use gentle soap and water over the incision. Do not use any ointments, Neosporin, salves, alcohol pads over the incision for 6 weeks postoperatively. Do not submerge underwater for 6 weeks postoperatively. Continue with KRISTYN hose/elastic stockings for 2 weeks postoperatively. May remove at nighttime but needs to be placed back on the leg during the day. Do NOT use alcohol with narcotic pain medication. Do NOT make important decisions while taking narcotic medication. If you have problems with taking your medication (rash, itching, nausea, etc.) call the office at once. Follow Up Care Test Results: Test results from this visit will be discussed in further detail at your follow-up appointment, if applicable. Discharge Plan Admission Admit Date/Time: 08/31/20 12:25 Attending Provider: José Miguel Cano Primary Care Provider: Lizz Torres NP Consulting Providers: Lilian Muñoz Discharge Orders/Prescriptions Prescriptions: New acetaminophen 500 mg Tablet 1,000 mg PO Q8 Qty: 100 RF: 0 aspirin 81 mg Tablet,Chewable 81 mg PO BIDCM Qty: 60 RF: 0 oxycodone 5 mg Tablet 5 - 10 mg PO Q4H PRN PRN (Reason: Pain As needed) 5 Days Qty: 60 RF: 0 sennosides-docusate sodium [Stool Softener-Stimulant Laxat] 8.6-50 mg Tablet 2 tab PO BID Qty: 14 RF: 0 Continued meloxicam 7.5 MG tablet 7.5 mg PO DAILY RF: 0 levothyroxine [Levoxyl] 150 MCG tablet 150 mcg PO DAILY RF: 0 fenofibrate nanocrystallized 145 MG tablet 145 mg PO DAILY RF: 0 cholecalciferol (vitamin D3) [Decara] 50,000 UNIT capsule 50,000 unit PO QWEEK RF: 0 amlodipine-valsartan [Exforge] 1 TAB tablet 1 tab PO DAILY RF: 0 pantoprazole 20 mg Tablet,Delayed Release (Dr/Ec) 20 mg PO DAILY RF: 0 ascorbic acid (vitamin C) [Vitamin C] 500 mg Tablet 500 mg PO DAILY RF: 0 Referrals / Follow Up: Physical,Therapy [Other] - 09/05/20 9:00 am Lizz Torres NP, CUSTOM PROTECTION OFFICER-C [Primary Care Provider] - Te Bustamante PA-C [PHYSICIAN CONTACT CENTER SPECIALIST] - 09/14/20 9:00 am Disposition Disposition (needs filled in before D/C Order can be placed): Home, self care
[2020-09-01 07:12] VITALS: O2SAT 99
--- NOTE | 2020-09-01 07:29 | PCM.PN.HOSP ---
Subjective Subjective Patient has mild swelling over left operative region otherwise no complaint. She required oxygen last night probably has sleep apnea. Otherwise no chest pain or shortness of breath. Objective Data Objective Data Vital Signs: Vital Signs Temp Pulse Resp BP Pulse Ox 97.9 F 62 18 120/62 99 09/01/20 06:43 09/01/20 06:43 09/01/20 06:43 09/01/20 06:43 09/01/20 06:43 Oxygen Flow Rate (L/min) 2 Oxygen Delivery Method Nasal Cannula Weight: 182 lb 8.684 oz Body Mass Index (BMI) 32.3 Intake & Output: Intake and Output for Last 24 Hours 08/30/20 08/31/20 09/01/20 23:59 23:59 23:59 Intake Total 2485 / 2745 1410 / 1410 Balance 2485 / 2745 1410 / 1410 Lab / Micro Data Result Diagrams: 09/01/20 07:25 09/01/20 07:25 Labs: Laboratory Results - last 24 hr 08/31/20 08/31/20 12:13 16:12 POC Glucose 93 153 H Micro: Microbiology 08/18/20 15:11 Swab (Method) Nasal Screen MRSA/MSSA - Final Radiography Diagnostic Testing: Radiology Impression Knee X-Ray 08/31/20 12:25 IMPRESSION: Status post left knee arthroplasty Electronically Signed: Fabien Hernández MD at 18:06 EDT , Service support , Physical Exam Narrative General: Alert, Oriented x3, Cooperative HEENT: Atraumatic, PERRLA, EOMI, Normocephalic Oral: No Gingival or Mucosal Lesions/ Ulcerations Neck: Supple, No JVD, Negative Carotid Bruits Lungs: Air entry diminished in bilateral lung bases. No crepitation/rhonchi Cardiovascular: Regular rate, Regular Rhythm, Normal S1, Normal S2, No murmurs Abdomen: Bowel Sounds Present, Soft, Non Tender, Non-Distended : No renal angle tenderness. No suprapubic tenderness. Extremities: No edema, Capillary Refill Less than 3 Seconds Skin: No rashes, No breakdown Musculoskeletal: Mild perioperative edema around left knee surgery. Surgical dressing is dry. Right TKR surgical scar Neurological: Cranial nerves II-XII grossly intact, Deep Tendon Reflexes 2+/4 and Symmetrical, Neuro grossly intact Psych/Mental Status: Normal Affect, Appropriate. Assessment & Plan Assessment/Plan (1) Nausea and vomiting after administration of anesthetic agent: (2) Status post total left knee replacement: PLAN: This 69-year-old 1 female admitted for left primary osteoarthritis, recalcitrant to medical management for robotic assisted left TKR. 1. Nausea and vomiting after administration of anesthetic agent -Nausea and vomiting was controlled with Zofran. Currently no nausea vomiting. 2. Hypertension -Continue amlodipine 10?valsartan 320 mg daily 3. Hypothyroidism -Continue levothyroxine 150 mcg daily 4. Hypertriglyceridemia -Continue fenofibrate 145 mg p.o. daily 5. Right total knee replacement on 08/31/2020 -Continue pain management as ordered per orthopedic surgeon DVT prophylaxis-SCDs VTE prophylaxis as per surgeon generally needs 35 days if patient does not have high surgical risk bleeding risk. Discontinue if platelet count drops less than 50,000 or hemoglobin less than 8 g% Charges/Coding Visit Charges Inpatient E&M: 07940 Subs Hosp L2
[2020-09-01] MEDS: Senna/Docusate Sodium 1 Tablet 2 TABLET PO (07:30)
[2020-09-01 07:31] LABS: Hematocrit 42.9 % (37-47); Hemoglobin 14.1 g/dL (12.0-15.0); Mean Corp Hgb Conc 32.9 g/dL (32-36); Mean Corpuscular Hgb 29.9 pg (27.0-32.0); Mean Corpuscular Volume 91.1 fL (81-99); Mean Platelet Vol. 10.4 fl (6.2-12.0); Platelet Count 148 K/mm3 (150-450); RBC Distribution Width CV 13.2 % (11.6-14.6); RBC Distribution Width SD 43.7 fl (35.1-43.9); Red Blood Count 4.71 M/mm3 (4.2-5.4); White Blood Count 9.8 K/mm3 (4.4-11.0)
[2020-09-01] MEDS: Aspirin 81 MG TAB.CHEW PO (07:31)
[2020-09-01] MEDS: Fenofibrate 145 MG Tablet PO (07:31)
[2020-09-01] MEDS: Pantoprazole Sodium 20 MG Tablet PO (07:31)
[2020-09-01] MEDS: Losartan Potassium 100 MG Tablet PO (07:32)
[2020-09-01] MEDS: amLODIPine 10 MG Tablet PO (07:32)
[2020-09-01] MEDS: Famotidine 20 MG Tablet PO (07:34)
[2020-09-01 07:36] VITALS: BP 113/61; PULSE 60; RESP 18; TEMP 36.4; O2SAT 95
[2020-09-01 08:08] LABS: Anion Gap 9 (5-15); BUN 11 mg/dL (7-18); BUN/Creat Ratio 16.8 RATIO (10-20); Calcium,Total 8.4 mg/dL (8.5-10.1); Chloride 105 mmol/L (98-107); Creatinine, Serum 0.66 mg/dL (0.55-1.02); EST Glomerular Filtration Rate 95 mL/min (>60); Est Glom Filt Rate - Afr Amer 115 mL/min (>60); Estimated Creatinine Clearance 42.68 ml/min; Glucose 125 mg/dL (74-106); Potassium 4.2 mmol/L (3.5-5.1); Sodium Level 140 mmol/L (136-145)
--- NOTE | 2020-09-01 10:45 | CASEMGMT ---
RN CM Face to Face with patient for initial transition planning/care coordination assessment. RN CM introduced self and role at [facility]. Patient lying in bed, alert and oriented, at bedside. Patient willing to participate in assessment and is able to answer all questions appropriately. Care providers, pharmacy, and demographics verified. Patient wishes to discharge home and is setup with [facility] for outpatient. Patient states she has no further needs or concerns at this time. CM to follow for discharge planning needs that may arise. PCP: Melissa Specialists: dane Cano Pharmacy: [facility] Insurance: [facility] Prescription Benefit: yes Living Will/HPOA: yes, Ronni Diaz LNOK: , daughter Living Arrangements: patient lives with in a 2 story home with railing. Patient states she was independent prior to surgery. Transportation: , daughter DME/HHC: Patient states she has shower chair, BSC, grab bars, walker at home. Patient has outpatient therapy schedule with [facility] starting home. Disposition Plan: patient to discharge home with outpatient therapy, family support, and follow-up plans in place. Keren ALBERTO, RN, CM
[2020-09-01] MEDS: Ensure Surgery 237 ML LIQUID PO (11:23)
--- NOTE | 2020-09-01 13:30 | CASEMGMT ---
NIGEL RIVERA in to discuss ADAIR form with patient. RN NICOLE explained ADAIR form to patient, patient voiced understanding. Patient signed ADAIR form and filed in chart. Patient provided with copy of signed ADAIR form. Patient had no further questions or concerns at this time.
[2020-09-01 14:06] VITALS: BP 119/60; PULSE 77; RESP 14; TEMP 36.3; O2SAT 94
== END 2020-09-01 15:00 | disposition home or self-care (01) ==
LOC: MS3 09-01 07:13
PROVIDERS: Anesthesiology; Admitting Provider Specialist; PCP Nurse Practitioner; Referring Provider Specialist; Visit Provider Specialist
PROC: 0SRD0JZ Replacement of Left Knee Joint with Synthetic Substitute, Open Approach (ICD-10-PCS; CPT 27447; principal; 2020-08-31 13:45)
DX: M17.12 Unilateral primary osteoarthritis, left knee (principal); M19.90 Unspecified osteoarthritis, unspecified site; I10 Essential (primary) hypertension; Z79.899 Other long term (current) drug therapy; Z87.442 Personal history of urinary calculi; E78.1 Pure hyperglyceridemia; E03.9 Hypothyroidism, unspecified; Z96.651 Presence of right artificial knee joint
CPT/HCPCS: 01402; 27447; 64447; S2900; 36415; 73560; 80048; 82962; 83735; 85027; 87081; 88305; 88311; 96361; 96365; 96366; 96372; 96375; 97110; 97162; 97166; 97530; 97535; 99218; 99251; C1776; J7120; A4216; G0378; G0379; G0463; J2405

== ENCOUNTER → 2020-09-06 14:47 | Outpatient (CLI) | payer MEDICARE, SELFPAY ==
[2020-08-31 19:07] VITALS: BMI 32.3
--- NOTE | 2020-09-06 14:49 | VDLE_ITS ---
Reason For Study: Pain in LLE Procedure LEFT This is a venous duplex using B-mode, color GSV is normal. flow and spectral Doppler. CFV is compressible, spontaneous, phasic, Exam performed in department. competent, and demonstrates normal A preliminary report was called and/or faxed augmentation. to Rachael. FV is compressible, spontaneous, phasic, competent and demonstrates normal augmentation. POP V is compressible, spontaneous, phasic, competent and demonstrates normal augmentation. T/P Trunk is compressible. PTV is compressible. LT PerV is compressible. VL/Venous Duplex US, Unilateral Interpretation Summary Deep veins of the left lower extremity are patent and compressible segmentally. There is no evidence of left lower extremity deep vein thrombosis. Valvular competence appears intac t within the proximal deep venous system on the left . The left great saphenous vein appears patent a nd compressible segmentally. Ordering Physician: José Miguel Cano Referring Physician: Lizz Torres Performed By: Keren Pulido RVT and Student
== END ==
PROVIDERS: PCP Nurse Practitioner; Referring Provider Specialist; Visit Provider Specialist
DX: M79.605 Pain in left leg (principal)
CPT/HCPCS: 93971

== ENCOUNTER → 2021-11-14 | Outpatient (CLI) | payer MEDICARE, SELFPAY ==
--- NOTE | 2021-11-14 09:46 | BI_ITS ---
MAMMOGRAPHY - BILATERAL SCREENING 3-D TOMOSYNTHESIS REASON FOR EXAM: Female, 71 years old. SCREENING PERTINENT HISTORY: No significant family history. TECHNIQUE: 2-D mammograms and 3-D Tomosynthesis of the breast (s) were performed. CAD was performed. COMPARISON: 08/25/2015 FINDINGS: The breast composition is composed of scattered fibroglandular density. Scattered benign calcifications are seen. No dense spiculated masses or suspicious microcalcifications are identified. No architectural distortion is identified. There is no skin thickening or retraction. There has been no significant change since the prior study. BI/SCRN MAMM (CAD)W/JOCELINE BILAT IMPRESSION: No mammographic signs of malignancy. Routine yearly mammograms recommended. ASSESSMENT CATEGORY: BIRADS Category 1: Negative. A letter regarding these results will be sent to the patient by the facility within 30 days. FOLLOW UP RECOMMENDATION: Yearly follow up mammogram recommended. (A) Approximately 10% of breast cancers are not detected by mammography. A normal mammogram should not delay biopsy of a clinically suspicious abnormality. Electronically Signed: Too Mata MD at 16:31 EDT ,
== END | disposition home or self-care (01) ==
LOC: OPBI 09:43
PROVIDERS: PCP Nurse Practitioner Family; Visit Provider Nurse Practitioner Family
DX: Z12.31 Encounter for screening mammogram for malignant neoplasm of breast (principal)
CPT/HCPCS: 77063; 77067

== ENCOUNTER → 2021-12-22 | Outpatient (CLI) | payer MEDICARE, SELFPAY ==
--- NOTE | 2021-12-22 15:09 | US_ITS ---
INDICATION: UTI EXAMINATION: Ultrasound US Kidney(s) complete (eg, kidneys and bladder) TECHNIQUE: Bonilla scale and color doppler images were obtained of the kidneys. COMPARISON: 03/14/2017.. FINDINGS: RIGHT KIDNEY: There is a simple cyst visualized in the lower pole of the right kidney measuring 3.1 x 2.1 x 2.2 cm, this demonstrates increase in size in comparison to the prior study where it had measured 1.9 x 2.0 x 1.7 cm The right kidney measures 12.3 x 6.0 x 4.9 cm. Right renal cortex measures 1.3 cm. There is no hydronephrosis. No shadowing calculus, focal lesion or perinephric collection is demonstrated. LEFT KIDNEY: There are 2 cysts visualized in the lower pole of the left kidney the largest of which measures 4.5 x 3.2 x 3.3 cm the second demonstrates calcifications in the border and measures 3.2 x 2.7 x 1.9 cm. Also seen is a hyperechoic stone with posterior acoustic shadowing measuring 1.0 x 1.2 x 0.4 cm. The cysts demonstrate increase in size in comparison to the prior study. Subtle increased echogenicity visualized within the cysts. Single calcification demonstrates a small size in comparison to the prior study where they were multiple stones seen. The left kidney measures 11.6 x 4.7 x 4.6 cm. Left renal cortex measures 1.3 cm. URINARY BLADDER: The urinary bladder is nondistended. US/Kidney and Bladder IMPRESSION: Bilateral renal cysts demonstrate slight prominence in comparison to the prior study. Decreased stone burden in the left kidney in comparison to the prior study. Electronically Signed: Roderick Bull MD at 16:26 EDT ,
== END | disposition home or self-care (01) ==
LOC: US 15:00
PROVIDERS: PCP Nurse Practitioner Family; Referring Provider Urology; Visit Provider Urology
DX: N39.0 Urinary tract infection, site not specified (principal)
CPT/HCPCS: 76770

== ENCOUNTER → 2022-01-23 | Outpatient (CLI) | payer MEDICARE, SELFPAY ==
--- NOTE | 2022-01-23 15:10 | CT_ITS ---
STUDY: CT Abdomen And Pelvis W/O Contrast Injection 01/23/2022 8:03 PM REASON FOR EXAM: Female, 71 years old. Abdominal pain STONES/CYSTS Individualized dose optimization techniques were used for this CT. COMPARISON: 10/15/2014 TECHNIQUE: CT Abdomen And Pelvis W/O Contrast Injection FINDINGS: There are atherosclerotic calcifications of visualized coronary arteries. The visualized portions of the heart are within normal limits. Normal liver. There is a solitary gallstone. There are multiple benign calcified granulomata of the spleen. Normal pancreas. Normal bilateral adrenal glands. There are hypodensities in the right kidney. These are consistent for cysts. No follow up required. Stable nonobstructive intraparenchymal calculi in the lower pole of the left kidney with a stable cyst. Normal visualized stomach. Normal small intestine. Stool throughout the colon. There is non-visualization of the appendix. There are calcifications of the abdominal aorta. This is consistent for atherosclerotic disease. There is NO abdominal aortic aneurysm. Vascular workup can be obtained based on clinical correlation. Normal inferior vena cava. Subcentimeter mesenteric lymph nodes. Normal urinary bladder. There is absence of the uterus consistent with a prior hysterectomy. There is an umbilical hernia containing fat. Normal osseous structures. CT/Abdomen/Pelvis without Cont IMPRESSION: (NOT LISTED IN ORDER OF SIGNIFICANCE) Stable nonobstructive left renal stones. There is a solitary gallstone. Other findings as above. Electronically Signed: Marcio Castillo MD at 20:06 EDT ,
== END | disposition home or self-care (01) ==
PROVIDERS: PCP Nurse Practitioner Family; Referring Provider Urology; Visit Provider Urology
DX: N20.0 Calculus of kidney (principal); N28.9 Disorder of kidney and ureter, unspecified
CPT/HCPCS: 74176

== ENCOUNTER → 2022-11-28 | Outpatient (CLI) | payer MEDICARE, SELFPAY ==
--- NOTE | 2022-11-28 14:05 | ART_ITS ---
Reason For Study: pvd Procedure A bilateral lower extremity continuous wave Doppler with analog waveform analysis,segmental pressures,and ankle brachial indexes with exercise. Left Segmental Pressures Left brachial= 135mmHg. Left posterior tibial artery = 149mmHg. Left dorsalis pedis artery = 147mmHg. Left digit = 130 mmHg. The left posterior tibial artery waveforms are triphasic. The left dorsalis pedis waveforms are triphasic. Right Segmental Pressures Right brachial= 129mmHg. Right posterior tibial artery = 162mmHg. Right dorsalis pedis artery = 138mmHg. Right digit = 100 mmHg. The right posterior tibial artery waveforms are triphasic. The right dorsalis pedis waveforms are triphasic. Indices The right ankle brachial index by the posterior tibial artery is 1.20. The right ankle brachial index by the dorsalis pedis is 1.02. The right digital-brachial index is 0.74. The right ankle brachial index by the posterior tibial artery post exercise is 1.19. The left ankle brachial index by the posterior tibial artery is 1.10. The left ankle brachial index by the dorsalis pedis is 1.09. The left digital-brachial index is 0.96. The left post exercise ankle brachial index is 1.02. VL/Lower Ext Art Exam w/ Exercise Interpretation Summary Triphasic Doppler waveforms are noted at ankle level bilaterally. Pulse-volume recordings appear satisfactory at all levels bilaterally. Resting ankle-brachial indices are norm al bilaterally. Digital-brachial indices are normal bilaterally. Following a period of exercise , ankle pressures augmented bilaterally, a normal physiological response. There is no evidence of significant arterial occlusive disease in the lower ext remities bilaterally. Ordering Physician: Sridevi Calhoun Referring Physician: Sridevi Calhoun Performed By: Narayan Willett, RVT
== END | disposition home or self-care (01) ==
LOC: CVS 14:04
PROVIDERS: PCP Nurse Practitioner Family; Referring Provider Nurse Practitioner Family; Visit Provider Nurse Practitioner Family
DX: I73.9 Peripheral vascular disease, unspecified (principal)
CPT/HCPCS: 93924; Q9957; A4216

== ENCOUNTER → 2023-11-20 | Outpatient (CLI) | payer MEDICARE, SELFPAY ==
--- NOTE | 2023-11-20 09:34 | BD_ITS ---
STUDY: DUAL ENERGY X-RAY ABSORPTIOMETRY / DXA REASON FOR EXAM: Female, 73 years old. [id number] TECHNIQUE: Bone Mineral Density (BMD) measurements of lumbar spine and bilateral hips were obtained. COMPARISON: None. FINDINGS: Lumbar Spine (L1-L4): g/cm2 (0.849) / T-score (-1.8) / Z-score (0.6) Findings are suggestive of osteopenia with a moderate fracture risk. Left Femur Total: g/cm2 (0.872) / T-score (-0.6) / Z-score (1.2) Left Femoral Neck: g/cm2 (0.657) / T-score (-1.7) / Z-score (0.3) Right Femur Total: g/cm2 (0.823) / T-score (-1.0) / Z-score (0.8) Right Femoral Neck: g/cm2 (0.648) / T-score (-1.8) / Z-score (0.2) BD/Dexa Bone Density Study IMPRESSION: The patient is considered osteopenic as outlined below according to World Regulo Organization (WHO) criteria with a moderate fracture risk. Reference Information: The T-score is the number of standard deviations above or below the standard which is normal for young adults at their peak bone mineral density. The World Health Organization (WHO) interprets the T-scores as follows: Above -1 Normal bone density Between -1 and -2.5 Osteopenia Equal to / or below -2.5 Osteoporosis As a practical clinical guideline, osteopenia may be graded as follows: Mild -1 through -1.5 Moderate -1.6 through -2.0 Severe -2.1 through -2.4 The Z-score is the number of standard deviations above or below age-matched controls. A Z-score of less than -1.5 would be considered abnormal. References: 1. NIH Osteoporosis and Related Bone Diseases www osteo.org 2. International Society for Clinical Densitometry www iscd.org 3. National Osteoporosis Foundation www nof.org Electronically Signed: Vito Houston MD at 8:09 EDT ,
--- NOTE | 2023-11-20 09:34 | BI_ITS ---
MAMMOGRAPHY - BILATERAL SCREENING REASON FOR EXAM: Female, 73 years old. Routine annual screening examination. PERTINENT HISTORY: Sister with breast cancer. TECHNIQUE: Digital bilateral breast joceline (3D mammographic acquisition) in the CC and MLO projections. 2-D mediolateral oblique (MLO) and craniocaudad (CC) views of both breasts were obtained. CAD: Full Field Digital Mammography with Computer Added Detection was performed. COMPARISON: Comparison is made with prior study November 14, 2021 and August 25, 2015. FINDINGS: Breast Composition: There are scattered areas of fibroglandular density. There are no dominant masses or suspicious calcifications. No other significant abnormalities are identified. There has been no significant change since the prior study. BI/SCRN MAMM (CAD)W/JOCELINE BILAT IMPRESSION: Stable bilateral screening mammogram. Yearly follow-up mammogram recommended. (A) ASSESSMENT CATEGORY: BIRADS Category 1: Negative. A letter regarding these results will be sent to the patient by the facility within 30 days. Approximately 10% of breast cancers are not detected by mammography. A normal mammogram should not delay biopsy of a clinically suspicious abnormality. [id number] Electronically Signed: Vito Houston MD at 10:59 EDT ,
== END | disposition home or self-care (01) ==
PROVIDERS: PCP Nurse Practitioner Family; Referring Provider Nurse Practitioner Family; Visit Provider Nurse Practitioner Family
DX: Z12.31 Encounter for screening mammogram for malignant neoplasm of breast (principal); Z78.0 Asymptomatic menopausal state
CPT/HCPCS: 77063; 77067; 77080